=== PATIENT | female | born 1975 | race Caucasian/White ===

== ENCOUNTER 2024-03-30 10:56 | Day surgery (SDC) | payer OTHER ==
[2024-03-23 16:54] VITALS: BMI 20.3
[2024-03-30] MEDS ORDERED: LIDOCAINE HCL/PF 2% SDV 5ML VIAL ONE (12:04)
[2024-03-30] MEDS ORDERED: PROPOFOL 20 ML ONE (12:04)
[2024-03-30 12:49] VITALS: BP 100/52; PULSE 51; RESP 16; TEMP 100
== END 2024-03-30 12:45 | disposition home or self-care (01) ==
LOC: FASU-ENDO 10:56
PROVIDERS: ATTEND Internal Medicine Gastroenterology
PROC: 0DBN8ZX Excision of Sigmoid Colon, Via Natural or Artificial Opening Endoscopic, Diagnostic (ICD-10-PCS; principal; 2024-03-30 12:00)
DX: Z12.11 Encounter for screening for malignant neoplasm of colon (principal); K63.5 Polyp of colon; K64.1 Second degree hemorrhoids
CPT/HCPCS: 81025; 88305-TC